=== PATIENT | female | born 1985 | race Caucasian/White ===

== ENCOUNTER 2018-05-12 12:01 | Inpatient (IN) | payer MEDICAID ==
[2018-05-12] VITALS (10 sets, daily range): BP systolic 103–131; BP diastolic 69–94
[~2018-05-12] VITALS: Ht 154.9 cm; Wt 68.0 kg
--- NOTE | ~2018-05-12 | MORECARE ---
CASE MANAGEMENT DISCHARGE SUMMARY PATIENT: LORENA FLORES UNIT: [id number] ADM DATE: 05/12/18 AGE: 32 : 81 SEX: F ROOM/BED: D.2223 AUTHOR: DEMARCO,DOC PHYSICIAN: REFERRING PHYSICIAN: GO DENIS MD DATE OF SERVICE: 05/16/18 Discharge Plan Patient Name: LORENA FLORES Facility: [facility]:[place] : 1985 Planned Disposition: Psych facility Anticipated Discharge Date: Discharge Date: 05/15/2018 Expected LOS: 0 Initial Reviewer: [id number] Initial Review Date: 05/12/2018 Generated: 05/16/18 5:59 pm Comments DCP- Discharge Planning Updated by [email or web address]: Elly Mills on 05/15/18 2:[address] Received orders for discharge. I spoke to Mariana at [facility] psychiatric unit. Mariana states to fax clinical and she will call her biomedical field service engineer. I faxed her clinical to [phone] per her request. Patient will need to transfer via ambulance. CM will continue to follow and assist with discharge planning/needs. DCP- Discharge Planning Updated by [email or web address]: Elly Mills on 05/14/18 2:[address] Spoke with WILLIE Peña at [facility] unit and informed her of probable discharge in am. CM will continue to follow and assist with discharge planning/needs. DCP- Discharge Planning Updated by [email or web address]: Elly Mills on 05/13/18 2:[address] Patient Name: LORENA FLORES Admission Status: ER Accout number: [id number] Admission Date: 05-12-2018 : 1985 Admission Diagnosis: Attending: GO DENIS Current LOS: 1 Anticipated DC Date: Planned Disposition: Psych facility Primary Insurance: MEDICAID [place] Discharge Planning Comments: CM met with patient. She is a poor historian, unable to get any reliable information from her. I called [facility] inpatient psychiatric facility and spoke to the nurse there. She states the patient has been at [facility] since the and they are expecting to receive her back via ambulance when she is released from here. States prior to being at [facility], she was at [facility]. Mary is the safety person at [facility]. The nurse states her only known relative is Melissa Bean (aunt) and her aunt has custody of her three children. CM will continue to follow and assist with discharge planning/needs. Fabric Sourcer: Elly Mills Last DP export: 05/15/18 2:14 Patient Name: LORENA FLORES Page [id number] at [id number] All edits/amendments must be made on the electronic document DICTATION DATE: 05/16/181658 QA TEST LEAD: CHARITO 05/16/181658 RPT#: [id number] DC DATE:05/15/18 STATUS: DIS IN [facility] [address] [place] [address] END OF REPORT
[2018-05-12] MEDS ORDERED: NALTREXONE HCL50 MG PO (12:26)
[2018-05-12] MEDS ORDERED: ZYPREXA20 MG PO (12:27)
[2018-05-12] MEDS ORDERED: AMITRIPTYLINE H50 MG PO (12:27)
[2018-05-12] MEDS ORDERED: DEPAKOTE500 MG PO (12:27)
[2018-05-12] MEDS ORDERED: MINIPRESS2 MG PO (12:28)
[2018-05-12] MEDS ORDERED: BENZTROPINE MESY2 MG PO (12:28)
[2018-05-12] MEDS ORDERED: HALDOL5 MG PO (12:29)
[2018-05-12] MEDS ORDERED: LITHIUM CI8 MEQ/5 ML PO (12:29)
[2018-05-12] MEDS ORDERED: SEROQUEL200 MG PO (12:30)
[2018-05-12] MEDS ORDERED: FLUTICASONE PRO16 GM (12:30)
[2018-05-12 12:50] LABS: HCG SERUM NEGATIVE (NEGATIVE)
[2018-05-12 12:58] LABS: ALBUMIN 3.1 g/dL (3.4-5.0); ALKALINE PHOSPHATASE 62 U/L (46-116); ALT (SGPT) 20 U/L (10-68); AMYLASE - SERUM 13 U/L (25-115); BILIRUBIN - TOTAL 0.36 mg/dL (0.2-1.3); CALC OSMOLALITY 252 mosm/kg (275-300); CALCIUM 9.1 mg/dL (8.5-10.1); CARBON DIOXIDE 35.3 mmol/L (21.0-32.0); CHLORIDE - SERUM 86 mmol/L (98-107); CREATININE - SERUM 0.7 mg/dL (0.6-1.3); GLUCOSE 99 mg/dL (74-106); LIPASE 96 U/L (73-393); PROTEIN - SERUM 6.7 g/dL (6.4-8.2); SODIUM 125 mmol/L (136-145); TROPONIN-I < 0.017 ng/mL (0.000-0.060); UREA NITROGEN 14 mg/dL (7-18); eGFR NON AFRICAN AMERICAN > 90 mL/min (90-120)
[2018-05-12 13:03] LABS: POTASSIUM - SERUM 2.6 mmol/L (3.5-5.1)
[2018-05-12 13:14] LABS: HEMOGLOBIN 11.7 g/dL (12-16); MCH 31.8 pg (26.0-34.0); MCHC 34.4 g/dL (31.0-37.0); MCV 92.4 fL (80.0-100.0); MEAN PLATELET VOLUME 9.4 fL (7.4-10.4); PLATELET COUNT 280 10x3/uL (130-400); RBC 3.68 10x6/uL (4.00-5.40); RDW 12.1 % (11.5-14.5); WBC 20.6 10x3/uL (4.8-10.8)
[2018-05-12 13:30] LABS: MAGNESIUM - SERUM 1.8 mg/dL (1.8-2.4); PHOSPHOROUS 3.5 mg/dL (2.5-4.9)
[2018-05-12 13:35] LABS: LYMPHOCYTES 14 % (15-50); MONOCYTES 19 % (2-11); NEUTROPHILS 65 % (40-80); PLATELET ESTIMATE NORMAL
[2018-05-12 15:01] LABS: APPEARANCE HAZY (CLEAR); BILIRUBIN NEGATIVE (NEGATIVE); COLOR YELLOW (YELLOW); GLUCOSE NEGATIVE (NEGATIVE); KETONE NEGATIVE (NEGATIVE); NITRITE NEGATIVE (NEGATIVE); PROTEIN NEGATIVE (NEGATIVE); UROBILINOGEN NORMAL (NORMAL)
[2018-05-12 15:02] LABS: BACTERIA MODERATE /hpf (NONE SEEN); RED CELLS - URINE OCC /hpf (0-5)
[2018-05-12 15:03] LABS: MUCUS <1+ /lpf (NONE SEEN)
[2018-05-13 05:20] LABS: BASOPHILS 0.1 % (0-2); EOSINOPHILS 2.4 % (0-7); HEMATOCRIT 30.1 % (36.0-48.0); HEMOGLOBIN 9.8 g/dL (12-16); IMMATURE GRANULOCYTES 0.3 % (0-5); LYMPHOCYTES 19.4 % (15-50); MCH 30.9 pg (26.0-34.0); MCHC 32.6 g/dL (31.0-37.0); MEAN PLATELET VOLUME 9.1 fL (7.4-10.4); MONOCYTES 9.7 % (2-11); NEUTROPHILS 68.1 % (40-80); PLATELET COUNT 257 10x3/uL (130-400); RBC 3.17 10x6/uL (4.00-5.40); RDW 12.2 % (11.5-14.5)
[2018-05-13 05:26] LABS: WBC 14.5 10x3/uL (4.8-10.8)
[2018-05-13 05:52] VITALS: BP 103/63
[2018-05-13 05:56] LABS: ALBUMIN 2.6 g/dL (3.4-5.0); ALKALINE PHOSPHATASE 48 U/L (46-116); ALT (SGPT) 20 U/L (10-68); BILIRUBIN - TOTAL 0.31 mg/dL (0.2-1.3); CALCIUM 8.3 mg/dL (8.5-10.1); CHLORIDE - SERUM 102 mmol/L (98-107); GLUCOSE 90 mg/dL (74-106); MAGNESIUM - SERUM 1.8 mg/dL (1.8-2.4); PROTEIN - SERUM 5.8 g/dL (6.4-8.2); SODIUM 136 mmol/L (136-145)
[2018-05-13 06:02] LABS: CALC OSMOLALITY 270 mosm/kg (275-300); CARBON DIOXIDE 25.7 mmol/L (21.0-32.0); CREATININE - SERUM 0.5 mg/dL (0.6-1.3); PHOSPHOROUS 1.7 mg/dL (2.5-4.9); UREA NITROGEN 9 mg/dL (7-18); eGFR NON AFRICAN AMERICAN > 90 mL/min (90-120)
[2018-05-13 09:44] VITALS: BP 108/66
[2018-05-13 10:13] VITALS: BMI 28.3
[2018-05-13 10:53] VITALS: Ht 154.9 cm; Wt 68.0 kg
[2018-05-13 14:44] VITALS: BP 117/77
[2018-05-13 20:00] VITALS: BP 112/67
[2018-05-14 04:58] LABS: BASOPHILS 0.2 % (0-2); EOSINOPHILS 4.8 % (0-7); HEMATOCRIT 30.8 % (36.0-48.0); IMMATURE GRANULOCYTES 0.5 % (0-5); LYMPHOCYTES 27.7 % (15-50); MCH 31.5 pg (26.0-34.0); MCHC 32.5 g/dL (31.0-37.0); MONOCYTES 7.5 % (2-11); NEUTROPHILS 59.3 % (40-80); PLATELET COUNT 280 10x3/uL (130-400); RBC 3.17 10x6/uL (4.00-5.40); RDW 12.3 % (11.5-14.5); WBC 10.9 10x3/uL (4.8-10.8)
[2018-05-14 05:03] LABS: MCV 97.2 fL (80.0-100.0)
[2018-05-14 05:29] LABS: ALBUMIN 2.4 g/dL (3.4-5.0); ALKALINE PHOSPHATASE 47 U/L (46-116); ALT (SGPT) 17 U/L (10-68); BILIRUBIN - TOTAL 0.14 mg/dL (0.2-1.3); CALC OSMOLALITY 273 mosm/kg (275-300); CALCIUM 8.2 mg/dL (8.5-10.1); CARBON DIOXIDE 26.2 mmol/L (21.0-32.0); CHLORIDE - SERUM 105 mmol/L (98-107); CREATININE - SERUM 0.6 mg/dL (0.6-1.3); GLUCOSE 101 mg/dL (74-106); PHOSPHOROUS 1.9 mg/dL (2.5-4.9); POTASSIUM - SERUM 3.8 mmol/L (3.5-5.1); PROTEIN - SERUM 5.5 g/dL (6.4-8.2); SODIUM 138 mmol/L (136-145); UREA NITROGEN 7 mg/dL (7-18); eGFR NON AFRICAN AMERICAN > 90 mL/min (90-120)
[2018-05-14 05:33] VITALS: BP 96/67
[2018-05-14 09:19] VITALS: BP 104/70
[2018-05-14 11:36] VITALS: BP 101/72
[2018-05-14 15:30] VITALS: BP 105/65
[2018-05-14 20:20] VITALS: BP 128/84
[2018-05-15 07:38] LABS: BASOPHILS 0.3 % (0-2); EOSINOPHILS 5.2 % (0-7); HEMATOCRIT 31.1 % (36.0-48.0); HEMOGLOBIN 10.1 g/dL (12-16); IMMATURE GRANULOCYTES 0.6 % (0-5); LYMPHOCYTES 30.6 % (15-50); MCH 31.5 pg (26.0-34.0); MCHC 32.5 g/dL (31.0-37.0); MCV 96.9 fL (80.0-100.0); MEAN PLATELET VOLUME 9.1 fL (7.4-10.4); MONOCYTES 6.9 % (2-11); NEUTROPHILS 56.4 % (40-80); PLATELET COUNT 321 10x3/uL (130-400); RBC 3.21 10x6/uL (4.00-5.40); RDW 12.2 % (11.5-14.5); WBC 10.3 10x3/uL (4.8-10.8)
[2018-05-15 07:51] LABS: ALBUMIN 2.7 g/dL (3.4-5.0); ALKALINE PHOSPHATASE 52 U/L (46-116); ALT (SGPT) 21 U/L (10-68); BILIRUBIN - TOTAL 0.16 mg/dL (0.2-1.3); CALC OSMOLALITY 273 mosm/kg (275-300); CALCIUM 8.5 mg/dL (8.5-10.1); CARBON DIOXIDE 23.6 mmol/L (21.0-32.0); CHLORIDE - SERUM 105 mmol/L (98-107); CREATININE - SERUM 0.7 mg/dL (0.6-1.3); GLUCOSE 93 mg/dL (74-106); POTASSIUM - SERUM 4.1 mmol/L (3.5-5.1); PROTEIN - SERUM 6.1 g/dL (6.4-8.2); SODIUM 139 mmol/L (136-145); eGFR NON AFRICAN AMERICAN > 90 mL/min (90-120)
[2018-05-15 08:09] LABS: UREA NITROGEN 2 mg/dL (7-18)
[2018-05-15 10:20] VITALS: BP 120/84
[2018-05-15] MEDS ORDERED: CIPRO250 MG PO (14:16)
[2018-05-15 15:20] VITALS: BP 107/74
== END 2018-05-15 19:00 | disposition short-term general hospital (02) | DRG 392 ==
LOC: D.ER 12:01 → D.EDHOLD 16:51 → D.MS 16:51
PROVIDERS: Family Medicine; Internal Medicine Nephrology
DX: K59.00 Constipation, unspecified (principal); N39.0 Urinary tract infection, site not specified; F17.203 Nicotine dependence unspecified, with withdrawal; F20.9 Schizophrenia, unspecified; D64.9 Anemia, unspecified; E83.39 Other disorders of phosphorus metabolism; E87.6 Hypokalemia

== ENCOUNTER 2019-04-20 14:50 | Emergency (ER) | payer MEDICAID ==
[~2019-04-20] VITALS: Ht 154.9 cm; Wt 81.8 kg
[~2019-04-20 14:50] MED LIST: AMITRIPTYLINE H50 MG PO; BENZTROPINE MESY2 MG PO; CIPRO250 MG PO; DEPAKOTE500 MG PO; FLUTICASONE PRO16 GM; HALDOL5 MG PO; LITHIUM CI8 MEQ/5 ML PO; MINIPRESS2 MG PO; NALTREXONE HCL50 MG PO; SEROQUEL200 MG PO; ZYPREXA20 MG PO
[2019-04-20 14:54] VITALS: Ht 154.9 cm; Wt 81.8 kg
[2019-04-20 15:25] LABS: BASOPHILS 0 % (0-2); EOSINOPHILS 0.4 % (0-7); HEMOGLOBIN 11.8 g/dL (12-16); IMMATURE GRANULOCYTES 0.3 % (0-5); LYMPHOCYTES 47.2 % (15-50); MCH 32.1 pg (26.0-34.0); MCHC 35.8 g/dL (31.0-37.0); MCV 89.7 fL (80.0-100.0); MONOCYTES 6.6 % (2-11); NEUTROPHILS 45.5 % (40-80); RBC 3.68 10x6/uL (4.00-5.40); RDW 12.5 % (11.5-14.5); WBC 7.4 10x3/uL (4.8-10.8)
[2019-04-20 15:30] LABS: APPEARANCE CLEAR (CLEAR); BILIRUBIN NEGATIVE (NEGATIVE); COLOR STRAW (YELLOW); GLUCOSE NEGATIVE (NEGATIVE); KETONE NEGATIVE (NEGATIVE); NITRITE NEGATIVE (NEGATIVE); PROTEIN NEGATIVE (NEGATIVE); SPECIFIC GRAVITY 1.005 (1.005-1.020); UROBILINOGEN NORMAL (NORMAL)
[2019-04-20 15:32] LABS: PLATELET COUNT 158 10x3/uL (130-400)
[2019-04-20 15:40] LABS: ALBUMIN 2.9 g/dL (3.4-5.0); ALKALINE PHOSPHATASE 83 U/L (46-116); ALT (SGPT) 21 U/L (10-68); BILIRUBIN - TOTAL 0.39 mg/dL (0.2-1.3); CALC OSMOLALITY 254 mosm/kg (275-300); CALCIUM 8.5 mg/dL (8.5-10.1); CARBON DIOXIDE 27.4 mmol/L (21.0-32.0); CHLORIDE - SERUM 94 mmol/L (98-107); CREATININE - SERUM 0.6 mg/dL (0.6-1.3); GLUCOSE 87 mg/dL (74-106); POTASSIUM - SERUM 4.3 mmol/L (3.5-5.1); PROTEIN - SERUM 6.1 g/dL (6.4-8.2); SODIUM 129 mmol/L (136-145); UREA NITROGEN 5 mg/dL (7-18); eGFR NON AFRICAN AMERICAN > 90 mL/min (90-120)
[2019-04-20 15:44] LABS: AMYLASE - SERUM 15 U/L (25-115); LIPASE 112 U/L (73-393); TROPONIN-I < 0.017 ng/mL (0.000-0.060)
[2019-04-20 16:05] LABS: HCG URINE NEGATIVE (NEGATIVE)
[2019-04-20 20:15] VITALS: BP 137/72
== END 2019-04-20 20:16 | disposition other institution (70) ==
LOC: D.ER 14:50
PROVIDERS: Family Medicine
DX: R10.9 Unspecified abdominal pain (principal); F17.200 Nicotine dependence, unspecified, uncomplicated; J45.909 Unspecified asthma, uncomplicated